=== PATIENT | female | born 1995 | race Caucasian/White ===

== ENCOUNTER 2021-08-06 15:46 | Inpatient (IN) ==
[2021-08-06] MEDS ORDERED: miSOPROStoL 200 MCG TABLET RECTAL PRN (16:40)
[2021-08-06] MEDS ORDERED: TRANEXAMIC ACID 1,000 MG in SODIUM CHLORIDE 0.9% 100 ML IV PRN (16:40)
[2021-08-06] MEDS ORDERED: CARBOPROST TROMETHAMINE 250 MCG/ML AMP IM PRN (16:40)
[2021-08-06] MEDS ORDERED: ONDANSETRON 4 MG/2 ML VIAL IV PRN (16:40)
[2021-08-06] MEDS ORDERED: METHYLERGONOVINE 0.2 MG/1 ML AMP IM PRN (16:40)
[2021-08-06] MEDS ORDERED: AMPICILLIN INJ 2,000 MG in SODIUM CHLORIDE 0.9% 100 ML IV ONE (17:00)
[2021-08-06] MEDS ORDERED: OXYTOCIN/LR 20 UNIT/1,000 ML BAG IV ONE (17:00)
[2021-08-06 17:45] LABS: Basophils % 0.4 % (0.0-0.8); Eosinophils % 0.5 % (0.00-10.9); Hematocrit 32.1 VOL% (35.7-47.0); Hemoglobin 10.4 GM/DL (12.0-16.0); Immature Granulocytes % 0.6 %; Immature Granulocytes Absolute 0.05 #; Lymphocytes # 1.6 10*3/uL (1.4-4.0); Lymphocytes % 20.1 % (21.3-54.2); Mean Corpuscular HGB Conc 32.4 GM/DL (32-36); Mean Corpuscular Volume 89.4 FL (87-102); Mean Platelet Volume 13.4 FL (9.6-12.0); Monocytes # 1.2 10*3/uL (0.11-0.8); Monocytes % 14.3 % (1.7-12.7); Neutrophils % 64.1 % (38.7-73.9); Platelet Count 170 T/CUMM (130-400); Red Blood Count 3.59 MC/CUMM (3.8-5.5); Red Cell Distribution Width 13.1 % (9.3-17.3); White Blood Count 8.2 T/CUMM (4-12)
[2021-08-06] MEDS: LACTATED RINGERS 1,000 ML IV SCH ×2 (18:48→23:08)
[2021-08-06] MEDS ORDERED: MEPERIDINE 50 MG/1 ML VIAL IV PRN (19:43)
[2021-08-06] MEDS ORDERED: ACETAMINOPHEN 325 MG TABLET PO PRN (19:43)
[2021-08-06] MEDS: AMPICILLIN INJ 1,000 MG in SODIUM CHLORIDE 0.9% 100 ML IV SCH (22:16)
[2021-08-06] MEDS: BUTORPHANOL 2 MG/ML VIAL IV PRN (23:40)
[2021-08-07] MEDS: AMPICILLIN INJ 1,000 MG in SODIUM CHLORIDE 0.9% 100 ML IV SCH ×3 (02:00→11:26)
[2021-08-07] MEDS ORDERED: TERBUTALINE 1 MG/1 ML VIAL SUBCUT ONE (02:20)
[2021-08-07] MEDS ORDERED: DEXTROSE 5% LACTATED RINGERS 1,000 ML IV SCH (03:00)
[2021-08-07] MEDS: BUTORPHANOL 2 MG/ML VIAL IV PRN (09:07)
[2021-08-07] MEDS ORDERED: NALOXONE 0.4 MG/ML VIAL IV PRN (09:12)
[2021-08-07] MEDS ORDERED: FAMOTIDINE 20 MG/2 ML VIAL IV ONE (09:12)
[2021-08-07] MEDS ORDERED: diphenhydrAMINE 50 MG/1 ML VIAL IV PRN ×2 (09:12)
[2021-08-07] MEDS ORDERED: LACTATED RINGERS 1,000 ML IV ONE (09:12)
[2021-08-07] MEDS ORDERED: ePHEDrine 50 MG/ML VIAL IV PRN (09:12)
[2021-08-07] MEDS ORDERED: CITRIC ACID/SODIUM CITRATE 30 ML UDCUP PO ONE (09:12)
[2021-08-07] MEDS ORDERED: OXYTOCIN/LR 20 UNIT/1,000 ML BAG IV SCH (09:30)
[2021-08-07] MEDS ORDERED: fentaNYL 2 MCG/ROPIV 0.2% EPID 100 ML EPIDURAL SCH (09:30)
[2021-08-07 11:33] LABS: Mucus,Urine Occasional /LPF (Occasional); RBC,Urine 1 /HPF (0-4)
[2021-08-07 11:34] LABS: Urine Appearance Clear (Clear); Urine Color Straw (Yellow)
[2021-08-07 11:35] LABS: Bilirubin,Urine Negative (Negative); Blood, Urine Negative (Negative); Glucose,Urine (UA) Negative (Negative); Ketones,Urine Negative (Negative); Nitrite,Urine Negative (Negative); Protein,Urine Negative (Negative); Urine Specific Gravity 1.015 (1.001-1.035); Urine Urobilinogen 0.2 eU/dL (<2.0); Urine pH 7.5 (4.5-8.0)
[2021-08-07] MEDS: LACTATED RINGERS 1,000 ML IV SCH (12:40)
[2021-08-07] MEDS ORDERED: ceFAZolin 2,000 MG/50 ML DUPLEX IV ONE (13:33)
[2021-08-07] MEDS ORDERED: PHENYLEPHRINE 1 MG/10 ML SYRINGE IV ONE (13:59)
[2021-08-07] MEDS ORDERED: ONDANSETRON 4 MG/2 ML VIAL ONE ×2 (13:59→14:12)
[2021-08-07] MEDS ORDERED: LIDOCAINE MPF 2% /EPI 20 ML VIAL ONE (13:59)
[2021-08-07] MEDS ORDERED: METOCLOPRAMIDE 10 MG/2 ML VIAL ONE (14:12)
[2021-08-07] MEDS ORDERED: buprenorphine HCL 0.3 MG/ML VIAL ONE (14:17)
[2021-08-07 14:25] LABS: Cord Arterial Blood HCO3 22.1 MMOL/L
[2021-08-07] MEDS ORDERED: GLYCOPYRROLATE 0.4 MG/2 ML VIAL ONE (14:26)
[2021-08-07 14:28] LABS: Cord Venous Blood HCO3 23.2 MMOL/L; Cord Venous Blood PCO2 50.8 MMHG; Cord Venous Blood PO2 22.8
[2021-08-07] MEDS ORDERED: KETOROLAC 30 MG/1 ML VIAL ONE (14:32)
[2021-08-07] MEDS ORDERED: RHO(D) IMMUNE GLOBULIN 300 MCG SYRINGE IM ONE (14:52)
[2021-08-07] MEDS ORDERED: ACETAMINOPHEN 325 MG TABLET PO PRN (14:52)
[2021-08-07] MEDS ORDERED: OXYTOCIN/LR 20 UNIT/1,000 ML BAG IV ONE (14:52)
[2021-08-07] MEDS ORDERED: MAGNESIUM HYDROXIDE SUSP 30 ML UDCUP PO PRN (14:52)
[2021-08-07] MEDS ORDERED: ONDANSETRON 4 MG/2 ML VIAL IV PRN (14:52)
[2021-08-07] MEDS ORDERED: LACTATED RINGERS 1,000 ML IV SCH (15:00)
[2021-08-07] MEDS ORDERED: ACETAMINOPHEN 500 MG TABLET PO PRN (18:00)
[2021-08-07] MEDS: DOCUSATE SODIUM 100 MG CAPSULE PO SCH (20:59)
[2021-08-07] MEDS ORDERED: KETOROLAC 30 MG/1 ML VIAL IV SCH (21:00)
[2021-08-07] MEDS ORDERED: ACETAMINOPHEN 500 MG TABLET PO SCH (21:00)
[2021-08-07] MEDS: KETOROLAC 30 MG/1 ML VIAL IV SCH (21:20)
[2021-08-07] MEDS ORDERED: AMPICILLIN INJ 1,000 MG in SODIUM CHLORIDE 0.9% 100 ML IV SCH (22:00)
[2021-08-07 22:10] LABS: Basophils % 0.2 % (0.0-0.8); Eosinophils % 0.1 % (0.00-10.9); Hematocrit 24.3 VOL% (35.7-47.0); Hemoglobin 7.9 GM/DL (12.0-16.0); Immature Granulocytes % 0.4 %; Immature Granulocytes Absolute 0.07 #; Lymphocytes # 1.5 10*3/uL (1.4-4.0); Lymphocytes % 9.4 % (21.3-54.2); Mean Corpuscular HGB Conc 32.5 GM/DL (32-36); Mean Corpuscular Volume 90.3 FL (87-102); Mean Platelet Volume 12.8 FL (9.6-12.0); Monocytes # 1.5 10*3/uL (0.11-0.8); Monocytes % 9.6 % (1.7-12.7); Neutrophils % 80.3 % (38.7-73.9); Platelet Count 112 T/CUMM (130-400); Red Blood Count 2.69 MC/CUMM (3.8-5.5); Red Cell Distribution Width 13.2 % (9.3-17.3); White Blood Count 15.9 T/CUMM (4-12)
[2021-08-08] MEDS: LACTATED RINGERS 1,000 ML IV SCH (01:20)
[2021-08-08] MEDS: ACETAMINOPHEN 500 MG TABLET PO SCH ×2 (03:34→09:09)
[2021-08-08] MEDS: KETOROLAC 30 MG/1 ML VIAL IV SCH ×2 (03:35→09:10)
[2021-08-08 05:38] LABS: Basophils % 0.3 % (0.0-0.8); Eosinophils % 0.3 % (0.00-10.9); Hematocrit 22.7 VOL% (35.7-47.0); Hemoglobin 7.3 GM/DL (12.0-16.0); Immature Granulocytes % 0.7 %; Immature Granulocytes Absolute 0.08 #; Lymphocytes # 1.4 10*3/uL (1.4-4.0); Lymphocytes % 11.7 % (21.3-54.2); Mean Corpuscular HGB Conc 32.2 GM/DL (32-36); Mean Corpuscular Volume 90.4 FL (87-102); Mean Platelet Volume 12.7 FL (9.6-12.0); Monocytes # 1.2 10*3/uL (0.11-0.8); Monocytes % 10.3 % (1.7-12.7); Neutrophils % 76.7 % (38.7-73.9); Platelet Count 112 T/CUMM (130-400); Red Blood Count 2.51 MC/CUMM (3.8-5.5); Red Cell Distribution Width 13.2 % (9.3-17.3); White Blood Count 11.9 T/CUMM (4-12)
[2021-08-08] MEDS: IRON (CARBONYL)/VIT C/B12/FA TABLET PO SCH (09:05)
[2021-08-08] MEDS: MULTIVITAMIN (PRENATAL) TABLET PO SCH (09:06)
[2021-08-08] MEDS: DOCUSATE SODIUM 100 MG CAPSULE PO SCH ×2 (09:06→21:13)
[2021-08-08] MEDS: SIMETHICONE CHEW 80 MG TABLET PO PRN ×2 (11:05→18:38)
[2021-08-08] MEDS: IBUPROFEN 800 MG TABLET PO PRN ×2 (11:05→18:40)
[2021-08-08] MEDS: oxyCODONE/ACETAMINOPHEN 5-325 MG TABLET PO PRN ×2 (11:05→18:39)
[2021-08-09 07:23] VITALS: BP 109/76
[2021-08-09] MEDS: IBUPROFEN 800 MG TABLET PO PRN (07:58)
[2021-08-09] MEDS: oxyCODONE/ACETAMINOPHEN 5-325 MG TABLET PO PRN (07:58)
[2021-08-09] MEDS: DOCUSATE SODIUM 100 MG CAPSULE PO SCH (08:00)
[2021-08-09] MEDS: MULTIVITAMIN (PRENATAL) TABLET PO SCH (08:00)
[2021-08-09] MEDS: IRON (CARBONYL)/VIT C/B12/FA TABLET PO SCH (08:00)
[2021-08-09] MEDS ORDERED: DIPH/TET/ACEL PERT BOOSTER VACCINE 0.5 ML VIAL IM ONE (11:30)
== END 2021-08-09 12:05 | disposition home or self-care (01) | DRG 788 ==
LOC: N.LDOUT 15:46 → N.LD 15:55 → N.OB 08-07 20:34
PROVIDERS: ADMIT Obstetrics & Gynecology; ATTEND Obstetrics & Gynecology
PROC: LDCSECT (ICD-10-PCS; 2021-08-07 13:50)